=== PATIENT | female | born 1960 | race Caucasian/White ===

== ENCOUNTER 2022-01-08 10:45 | Outpatient (RCR) | payer BC, SELFPAY | END 2022-01-08 13:17 | disposition home or self-care (01) | PROVIDERS: PCP Family Medicine; Visit Provider Orthopaedic Surgery Sports Medicine | DX: M25.511 Pain in right shoulder (principal) | CPT/HCPCS: 97110; 97140; X5282 ==

== ENCOUNTER 2022-03-21 15:48 | Outpatient (CLI) | payer BC, SELFPAY ==
--- NOTE | 2022-03-21 16:00 | CRLHL7_ITS ---
For Patients: As a result of the Century Cures Act, medical imaging exams and procedure reports are released immediately into your electronic medical record. You may view this report before your referring provider. If you have questions, please contact your health care provider. DATE: 03/21/2022. CLINICAL HISTORY: Chronic sinusitis. TECHNIQUE: Standard CT scanning of the paranasal sinuses was performed. COMPARISON: None available. FINDINGS: There is minimal mucosal thickening of the inferior right maxillary sinus. The maxillary sinuses are otherwise well aerated. Maxillary ostia and ethmoid infundibula are patent. The frontal sinuses are well aerated. The frontal sinus outflow tracts are patent. The anterior and posterior ethmoid air cells are well aerated. There is very mild polypoid mucosal thickening of the pterygoid recess and posterior wall of the right sphenoid sinus. The sphenoid sinuses are otherwise well aerated. The sphenoethmoidal recesses are patent. Very mild leftward deviation of the nasal septum. Small left torrey bullosa. The mastoid air cells well aerated. The bony orbits and ventral skullbase are intact. IMPRESSION: 1. Minimal mucosal thickening of the inferior right maxillary sinus as well as very mild polypoid mucosal thickening of the pterygoid recess and posterior wall of the right sphenoid sinus. 2. The paranasal sinuses are otherwise well aerated. 3. The major sinus outflow tracts are patent. 4. Very mild leftward deviation of the nasal septum. Please note that all CT scans at this facility use dose modulation, iterative reconstruction, and/or weight-based dosing when appropriate to reduce radiation dose to as low as reasonably achievable. Dictated by Michael Hoff MD @ 03/21/2022 6:06:12 PM (Electronically Signed)
== END 2022-03-21 15:49 | disposition home or self-care (01) ==
LOC: CT 15:49
PROVIDERS: PCP Family Medicine; Visit Provider Otolaryngology
DX: J32.9 Chronic sinusitis, unspecified (principal); J32.0 Chronic maxillary sinusitis; J34.2 Deviated nasal septum
CPT/HCPCS: 70486

== ENCOUNTER 2022-06-06 08:05 | Day surgery (SDC) | payer BC, SELFPAY ==
[2022-06-06] VITALS (14 sets, daily range): BP systolic 109–146; BP diastolic 72–89; PULSE 70–84; RESP 16; TEMP 36.1–36.8; O2SAT 94–97; BMI 35.7
[2022-06-06] MEDS: LACTATED RINGERS 1000 ML 1,000 ML 100 ML IV (08:40)
[2022-06-06] MEDS: SODIUM CHLORIDE 0.9 % (FLUSH) 10 ML SYRINGE IVF (08:40)
--- NOTE | 2022-06-06 09:00 | W.ANESCHARGE ---
Anesthesia Charges Start Date/Time Anesthesia Start Date: 06/06/22 Anesthesia Start Time: 09:56 Stop Date/Time Anesthesia Stop Date: 06/06/22 Anesthesia Stop Time: 10:35
[2022-06-06] MEDS: OXYMETAZOLINE 0.05% NASAL SPRAY 2 SPRAY NOSTRIL-B (09:12)
[2022-06-06] MEDS: MUPIROCIN 1 GM PACKET 1 APPLIC TOPICAL (10:07)
[2022-06-06] MEDS: COCAINE HCL 4 % 4 ML SOLUTION NOSTRIL-B (10:07)
[2022-06-06] MEDS: BUPIVACAINE 0.5 %/EPI 1:200K 30 ML INJECTION (10:07)
[2022-06-06] MEDS: AYR SALINE NASAL GEL 1 APPLIC NOSTRIL-B (10:14)
--- NOTE | 2022-06-06 10:28 | W.PM.ENTPROC ---
Procedure Note Date of procedure: 06/06/22 Procedure: Preop diagnosis nasal obstruction, nasal headache, inferior turbinate hypertrophy, deviated septum, bilateral middle turbinate torrey bullosa Postoperative diagnosis same Procedure nasal septoplasty, submucous partial resection inferior turbinates, endoscopic partial resection bilateral middle turbinate torrey bullosa Under general endotracheal anesthesia patient was prepped and draped usual fashion. The nose was injected and decongested. The septal deflection was superior left and incision was made mucosa anterior to this and the mucosa on either side was elevated. The deflected portions of cartilage and bone were resected with turbinate scissors a piece was trimmed and returned to the intraseptal space. Flap was thus then laid back down nicely. Stab incision was made in the anterior of the right inferior turbinate a tunnel created with a Sally dissector. A conservative anterior submucous resection was performed followed by Coblation for hemostasis and to cauterize intramurally along the inferior 10%. This was repeated on the left side in identical fashion. The remainder procedure was done with the available assistance of a 0 degree endoscope. An incision was made in the inferolateral aspect of the right middle turbinate torrey bullosa. A tunnel was created and the torrey bone was infractured. The remainder of the turbinate was then crushed with the Whiting forceps without resecting any mucosa. This was repeated on the left side in identical fashion. Merocel packing coated in Bactroban was then placed beneath the middle turbinates on each side overlying the septal flap. The patient procedure well was taken recovery in satisfactory condition. Blood loss less than 25 mL complications 0 Surgeon: Moiz Hendrix MD
--- NOTE | 2022-06-06 10:36 | W.ANESCHARGE ---
Anesthesia Charges Start Date/Time Anesthesia Start Date: 06/06/22 Anesthesia Start Time: 09:56 Stop Date/Time Anesthesia Stop Date: 06/06/22 Anesthesia Stop Time: 10:35
[2022-06-06] MEDS: LACTATED RINGERS 1000 ML 1,000 ML 50 ML IV (10:37)
== END 2022-06-06 12:20 | disposition home or self-care (01) ==
PROVIDERS: PCP Family Medicine; Visit Provider Otolaryngology
PROC: (CPT 31231; principal; 2022-06-06 09:30)
DX: J34.2 Deviated nasal septum (principal); J34.3 Hypertrophy of nasal turbinates; R51.9 Headache, unspecified; J34.89 Other specified disorders of nose and nasal sinuses
CPT/HCPCS: 30520; 30140; 31240; 00160; A9270; J0330; J1100; J2250; J2405; J2704; J3010; J3490; J7120

== ENCOUNTER 2024-03-19 16:20 | Emergency (ER) | payer BC, SELFPAY ==
[2024-03-19 16:36] VITALS: BP 147/93; PULSE 75; RESP 16; TEMP 36.9; O2SAT 97; BMI 31.3
--- NOTE | 2024-03-19 16:53 | CRLHL7_ITS ---
For Patients: As a result of the Century Cures Act, medical imaging exams and procedure reports are released immediately into your electronic medical record. You may view this report before your referring provider. If you have questions, please contact your health care provider. Indication: Trauma. Technique: Right foot, 3 views. Comparison: None. Findings/Impression: Bones: Alignment is normal. No displaced fractures or bone lesions. Joint spaces: Unremarkable. Soft tissues: Focal soft tissue swelling along the dorsal forefoot. Dictated by El Trejo MD @ 03/19/2024 5:10:58 PM (Electronically Signed)
--- NOTE | 2024-03-19 16:54 | ED.LOWEXIN ---
HPI - Extremity Injury (Lower) General Chief Complaint: Extremity Pain/Injury, Lower Stated Complaint: R foot injury Time Seen by Provider: 03/19/24 16:21 History of Present Illness HPI Narrative: This patient comes in with an injury to her right foot. She was working on a lawn more in the deck of the lawn more became dislodged and fell down onto her right foot. She states that she estimates that this unit weight around 200 or 300 lb. She has pain and swelling with ecchymosis on the dorsal aspect of her right foot. She does not report any other injury. Related Data Home Medications ?Medication ?Instructions ?Recorded ?Confirmed atorvastatin 20 mg tablet 20 mg PO .Bedtime 10/22/21 06/19/22 azelastine 137 mcg (0.1 %) nasal 1 intranasal .as needed PRN 10/22/21 06/19/22 spray fluticasone propionate 50 2 spray intranasal .as needed PRN 10/22/21 06/19/22 mcg/actuation nasal spray,suspension levothyroxine 150 mcg tablet 150 mcg PO DAILY 10/22/21 06/19/22 losartan 50 mg tablet 50 mg PO DAILY 10/22/21 06/19/22 spironolactone 100 mg tablet 100 mg PO DAILY 10/22/21 06/19/22 Previous Rx's ?Medication ?Instructions ?Recorded cephalexin 500 mg capsule 500 mg PO TID #18 caps 06/06/22 ondansetron 4 mg disintegrating 4 mg PO Q8H #10 tabs 06/06/22 tablet oxycodone 5 mg tablet 5 mg PO Q4H PRN pain #30 tabs 06/06/22 Allergies Allergy/AdvReac Type Severity Reaction Status Date / Time Sulfa drugs Allergy Severe Hives Uncoded 06/19/22 15:50 Review of Systems Status of ROS: Reports: 10 or more systems reviewed and unremarkable except as noted in History and below Narrative: Constitutional: No fevers, no weight gain or loss. Eyes: No discharge. No vision changes. HENT: No congestion, no sore throat, no ear pain. Cardiovascular: No chest pain, no palpitations. Respiratory: No shortness of breath, no wheezes, no cough. Gastrointestinal: No abdominal pain, no vomiting, no diarrhea. Genitourinary: No dysuria, no hematuria. Musculoskeletal: Right foot injury as described above. Skin: No rashes, no pruritis. Neurological: No dizziness, weakness, sensory change, speech change. Endo/Heme/Allergies: No bruising or bleeding. No polydipsia. Pysch: no suicidality, no anxiety, no insomnia. All other systems reviewed and are negative. [facility] Medical History Back problem Surgical History Status post right rotator cuff repair (09/04/21) Family History Father Coronary artery disease Diabetes Substance abuse Mother Coronary artery disease Paternal Grandfather Stroke High blood pressure Breast cancer Unknown Hypercholesteremia Other Lung cancer Social History Smoking Status: Never smoker Do you use any of these nicotine containing products: None How often do you have a drink containing alcohol: 2-3 times a week Alcohol type: wine How many standard drinks containing alcohol do you have on a typical day: 1 or 2 AUDIT-C Alcohol total score: 3 Non-prescribed substance use: denies use Caffeine: Yes (2 cups coffee) Exam Narrative: Exam Narrative: Constitutional: Well-developed, well-nourished, no acute distress. HEENT: Normocephalic, atraumatic. Neck: Normal range of motion. Nontender. Supple. Heart: Intact distal pulses. Lungs: No chest discomfort. No wheezes, rhonchi, or rales. Abdomen: Nontender. Back: Normal range of motion. Extremities: The dorsal aspect of the right foot has significant swelling with ecchymosis. There is no skin injury. Skin: Intact. No rash. Warm. No erythema or pallor. Neurologic: No altered sensation. No weakness. Alert and oriented. Psychiatric: No suicidality. No anxiety or depression. No insomnia. Nursing notes and vitals signs are reviewed. Const: Vital Signs, click to edit/add: Vital Signs - 24 hr 03/19/24 16:36 Temperature 98.4 F Pulse Rate [Pulse Oximeter] 75 Respiratory Rate 16 Blood Pressure [Ri ght Upper Arm] 147/93 H Pulse Oximetry 97 Course Vital Signs Vital signs: Initial Vital Signs Temperature 98.4 F 03/19/24 16:36 Temperature Source Temporal Artery Scan 03/19/24 16:36 Pulse Rate 75 03/19/24 16:36 Respiratory Rate 16 03/19/24 16:36 Blood Pressure 147/93 H 03/19/24 16:36 Blood Pressure Mean 111 H 03/19/24 16:36 Blood Pressure Position Sitting 03/19/24 16:36 Pulse Oximetry 97 03/19/24 16:36 Vital Signs Temperature 98.4 F 03/19/24 16:36 Pulse Rate 75 03/19/24 16:36 Respiratory Rate 16 03/19/24 16:36 Blood Pressure 147/93 H 03/19/24 16:36 Pulse Oximetry 97 03/19/24 16:36 Temperature 98.4 F 03/19/24 16:36 Pulse Rate 75 03/19/24 16:36 Respiratory Rate 16 03/19/24 16:36 Blood Pressure 147/93 H 03/19/24 16:36 Pulse Oximetry 97 03/19/24 16:36 MDM - Extremity Injury (Lower) MDM Narrative Medical decision making narrative: This patient comes in with an injury to her right foot. X-ray images show no sign of fracture dislocation. She does have significant swelling from a contusion type injury. She did receive an John wrap. The patient does have crutches and is okay to increase ambulating as tolerated. She did receive [employer] prescription for [place]. Imaging Data XR R Foot: Radiologist's impression: Bones: Alignment is normal. No displaced fractures or bone lesions. Joint spaces: Unremarkable. Soft tissues: Focal soft tissue swelling along the dorsal forefoot. Discharge Plan Discharge Clinical Impression: Foot injury Patient Disposition: Home, Self-Care Condition: Stable Additional Instructions: Take medication as needed and directed. Use crutches also as needed and increase activity as tolerated. Follow up with MD return if worsening. Prescriptions: No Action fluticasone propionate 50 mcg/actuation spray,suspension 2 spray intranasal .as needed PRN azelastine 137 mcg (0.1 %) aerosol,spray 1 intranasal .as needed PRN levothyroxine 150 mcg tablet 150 mcg PO DAILY spironolactone 100 mg tablet 100 mg PO DAILY atorvastatin 20 mg tablet 20 mg PO .Bedtime losartan 50 mg tablet 50 mg PO DAILY cephalexin 500 mg capsule 500 mg PO TID Qty: 18 0RF ondansetron 4 mg tablet,disintegrating 4 mg PO Q8H Qty: 10 0RF oxycodone 5 mg tablet 5 mg PO Q4H PRN (Reason: pain) Qty: 30 0RF Follow Up/Referrals: Gita Ornelas DO [Primary Care Provider] - [facility]one [facility] Inst[facility]
== END 2024-03-19 18:06 | disposition home or self-care (01) ==
PROVIDERS: Emergency Provider Emergency Medicine Emergency Medical Services; PCP Family Medicine
DX: M79.671 Pain in right foot (principal); W22.8XXA Striking against or struck by other objects, initial encounter
CPT/HCPCS: 73630; 99283; 99284